=== PATIENT | male | born 1945 | race Caucasian/White ===

== ENCOUNTER 2020-05-13 15:19 | Emergency (ER) | payer MEDICARE, SELFPAY ==
[2020-05-13 15:26] VITALS: BP 126/59; PULSE 53; RESP 18; TEMP 36.7; O2SAT 98; BMI 27.1
[2020-05-13 15:32] VITALS: BP 126/59; PULSE 52; RESP 18; O2SAT 98
--- NOTE | 2020-05-13 15:43 | PC.NURSE ---
Patient brought in by EMS from home. Hx of Lewy body dementia and Parkinsons. Per patient has become increasingly combative, refusing food and medications today. Patient is able to tell me person, place, and time but takes a while to respond. Respirations regular and even. Skin PWD. Awaiting primary assessment.
--- NOTE | 2020-05-13 16:10 | PC.NURSE ---
Labs drawn by echocardiograph technician. Patient tolerated well. Patient changed out of soiled brief and wet pants. Urine collected using urinal. Awaiting results.
--- NOTE | 2020-05-13 16:15 | XR_ITS ---
EXAMINATION: XR CHEST CLINICAL INFORMATION: Altered mental status COMPARISON: 01/30/2016 TECHNIQUE: Frontal view of the chest was obtained. FINDINGS: No significant abnormality is noted involving the heart, lungs, mediastinum, bony thorax or soft tissues. A new tiny area of atelectasis is present at the right lung base. XR/XR chest 1V IMPRESSION: Unremarkable examination. Small area of right basilar atelectasis.
[2020-05-13 16:53] LABS: Basophils Absolute Auto 0.1 X10*3/uL (0.0-0.2); Basophils Percent Auto 0.5 % (0-2); Eosinophils Absolute Auto 0.1 X10*3/uL (0.0-0.4); Eosinophils Percent Auto 1.2 % (0-4); Hemoglobin 13.4 g/dl (14.0-18.0); Imm Gran Abs Auto 0.04 X10*3/uL (0.00-0.03); Imm Gran Pct Auto 0.4 % (0.0-0.4); Lymphocytes Absolute Auto 1.9 X10*3/uL (1.2-4.9); Lymphocytes Percent Auto 18.4 % (20-40); MANUAL DIFF FLAG NO; Mean Corpuscular HGB Conc 33.5 g/dl (31.0-36.0); Mean Corpuscular Hemoglobin 34.4 pg (27.0-33.0); Mean Corpuscular Volume 102.6 fL (80-98); Mean Platelet Volume 10.3 fL (9.4-12.4); Monocytes Absolute Auto 0.8 X10*3/uL (0.1-1.2); Monocytes Percent Auto 7.5 % (2-11); Neutrophils Absolute Auto 7.5 X10*3/uL (2.0-8.3); Platelet Count 176 X10*3/uL (160-400); Red Cell Distribution Width 12.7 % (11.0-16.0); White Blood Count 10.4 X10*3/uL (4.8-10.8)
[2020-05-13 17:00] LABS: Glucose Urine UA NEG (NEG); Leukocyte Esterase Urine NEG (NEG); Nitrite Urine NEG (NEG); Urine Blood NEG (NEG); Urine Ketones NEG (NEG); Urine Protein NEG (NEG-TRACE)
[2020-05-13 17:04] LABS: Appearance Urine HAZY; Color Urine YELLOW
[2020-05-13 17:35] LABS: Alanine Aminotransferase < 6 U/L (0-40); Albumin Level 4.2 g/dL (3.5-5.0); Alkaline Phosphatase 69 U/L (39-117); Anion Gap 13 (12-20); Aspartate Amino Transferase 11 U/L (5-37); Bilirubin Total 1.2 mg/dL (0.0-1.0); Blood Urea Nitrogen 26 mg/dL (9-16); Calcium 8.4 mg/dL (8.4-10.2); Carbon Dioxide 25 mmol/L (22-29); Chloride 104 mmol/L (96-108); Creatinine Clr Calc Pharmacy 68.9; Estimated Glomerular Filt Rate > 60; Glucose Random 98 mg/dL (60-115); Potassium 4.5 mmol/l (3.3-5.1); Sodium 137 mmol/L (135-145); Total Protein 6.4 g/dL (6.5-8.0)
--- NOTE | 2020-05-13 17:55 | ED_ITS ---
HPI - Altered Mental Status General Chief Complaint: Altered Mental Status Stated Complaint: AMS X'S 3 DAYS W/ VISUAL CHASE & IRRAT BEHAVIOR Time Seen by Provider: 05/13/20 16:15 Source: family Mode of arrival: wheelchair Limitations: altered mental status and other ( dementia) History of Present Illness HPI narrative: patient with Lewy body dementia per patient is paranoid for last 3 days difficult to control seen by nurse practitioner who increased the dose of Seroquel to 75 mg brought to the ER to rule out any metabolic reason for change in mental status. No cough no fever no vomiting Related Data Previous Rx's Medication Instructions Recorded lorazepam [Ativan] 0.5 mg PO BEDTIME PRN #10 tab 05/13/20 Allergies Allergy/AdvReac Type Severity Reaction Status Date / Time No Known Allergies Allergy Unverified 03/07/20 19:07 [No Known Allergies*] Review of Systems Review of Systems: Yes Unobtainable due to mental status PMFSH Past Medical History Medical History Lewy body dementia Parkinson disease Social History Social History Alcohol intake: never Smoking Status: Never smoker Use of substances other than those prescribed or required for medical reasons: No Advance Directives: No Advance Directives Information Provided: No Physical Exam Vital Signs: Vital Signs: Last Vital Signs Temp 98.0 F 05/13/20 15:26 Pulse 60 05/13/20 18:00 Resp 18 05/13/20 18:00 BP 126/59 L 05/13/20 15:32 Pulse Ox 97 05/13/20 18:00 Body Mass Index 27.1 Appearance: Alert. Oriented X2-3. No acute distress. Eyes: Pupils equal, round and reactive to light. ENT: Pharynx normal. Neck: Normal inspection. Neck supple. CVS: Normal heart rate and rhythm. Pulses normal. Respiratory: No respiratory distress. Breath sounds normal. Abdomen: Soft and nontender. Skin: Skin warm and dry. Normal skin color. Normal skin turgor. Extremities: No lower extremity edema. Good range of movement Neuro: Oriented X 2-3. No motor deficit. No sensory deficit. Course Course Course Narrative: patient with body dementia with psychotic behavior at home paranoid at this time patient behaving normal had food in the ER lab workup essentially negative. Case discussed with patient's agreed to take the boone marquez home for now continue Seroquel will add the lorazepam in the night for increased agitation MDM - Altered Mental Status Lab Data Result diagrams: 05/13/20 16:46 05/13/20 16:46 Labs: Lab Results 05/13/20 05/13/20 05/13/20 Range/Units 16:46 16:46 16:54 WBC 10.4 (4.8-10.8) X10*3/uL RBC 3.90 L (4.60-5.80) X10*6/uL Hgb 13.4 L (14.0-18.0) g/dl Hct 40.0 L (42-52) % MCV 102.6 H (80-98) fL MCH 34.4 H (27.0-33.0) pg MCHC 33.5 (31.0-36.0) g/dl RDW 12.7 (11.0-16.0) % Plt Count 176 (160-400) X10*3/uL MPV 10.3 (9.4-12.4) fL Immature Gran % (Auto) 0.4 (0.0-0.4) % Neut % (Auto) 72.0 (45-73) % Lymph % (Auto) 18.4 L (20-40) % Sumner % (Auto) 7.5 (2-11) % Eos % (Auto) 1.2 (0-4) % Baso % (Auto) 0.5 (0-2) % Lymph # (Auto) 1.9 (1.2-4.9) X10*3/uL Sumner # (Auto) 0.8 (0.1-1.2) X10*3/uL Eos # (Auto) 0.1 (0.0-0.4) X10*3/uL Baso # (Auto) 0.1 (0.0-0.2) X10*3/uL Abs Immat Gran (auto) 0.04 H (0.00-0.03) X10*3/uL Absolute Neuts (auto) 7.5 (2.0-8.3) X10*3/uL Absolute Nucleated RBC 0.000 (0.0-0.012) X10*3/uL Nucleated RBC % (auto) 0.0 (0.0-0.2) /100WBC Sodium 137 (135-145) mmol/L Potassium 4.5 (3.3-5.1) mmol/l Chloride 104 (96-108) mmol/L Carbon Dioxide 25 (22-29) mmol/L Anion Gap 13 (12-20) BUN 26 H (9-16) mg/dL Creatinine 1.00 (0.5-1.4) mg/dL Estim Creat Clear Calc 68.9 Estimated GFR > 60 Random Glucose 98 (60-115) mg/dL Calcium 8.4 (8.4-10.2) mg/dL Total Bilirubin 1.2 H (0.0-1.0) mg/dL AST 11 (5-37) U/L ALT < 6 (0-40) U/L Alkaline Phosphatase 69 (39-117) U/L Total Protein 6.4 L (6.5-8.0) g/dL Albumin 4.2 (3.5-5.0) g/dL Urine Color YELLOW Urine Appearance HAZY Urine pH 7.0 (5.0-8.0) Ur Specific [place] 1.010 (1.005-1.025) Urine Protein NEG (NEG-TRACE) MG/DL Urine Glucose (UA) NEG (NEG) MG/DL Urine Ketones NEG (NEG) MG/DL Urine Blood NEG (NEG) Urine Nitrite NEG (NEG) Ur Leukocyte Esterase NEG (NEG) Discharge Plan Discharge Clinical Impression: Dementia with Lewy bodies Qualifiers: Dementia behavioral disturbance: with behavioral disturbance Qualified Code(s): G31.83 - Dementia with Lewy bodies Patient Disposition: Home, Self-Care Instructions: Dementia (ED) Additional Instructions: continue your medications as prescribed by PCP. Ativan 0.5 mg every night as needed for increased agitation. Follow-up with your PCP Prescriptions: New lorazepam [Ativan] 0.5 mg tablet 0.5 mg PO BEDTIME PRN (Reason: agitation) Qty: 10 RF: 0
[2020-05-13 18:00] VITALS: PULSE 60; RESP 18; O2SAT 97
== END 2020-05-13 18:40 | disposition home or self-care (01) ==
PROVIDERS: Emergency Provider Internal Medicine
DX: G31.83 Neurocognitive disorder with Lewy bodies (principal); R41.82 Altered mental status, unspecified; Z79.899 Other long term (current) drug therapy
CPT/HCPCS: 36415; 71045; 80053; 81003; 85025; 99283; 99284

== ENCOUNTER 2020-05-14 09:54 | Emergency (ER) | payer MEDICARE, SELFPAY ==
[2020-05-14] VITALS (9 sets, daily range): BP systolic 110–205; BP diastolic 61–119; PULSE 60–85; RESP 16–20; TEMP 36.7–36.8; O2SAT 96–99; BMI 56.9
--- NOTE | 2020-05-14 10:29 | ED.AMS ---
HPI - Altered Mental Status General Chief Complaint: Altered Mental Status Stated Complaint: ukn Time Seen by Provider: 05/14/20 10:05 Source: patient, family and EMS Mode of arrival: EMS Limitations: altered mental status (dementia ) History of Present Illness HPI narrative: 74 y/o male with history of Lewy Body Dementia, Parkinson's disease who presents via EMS with aggressive and agitated behavior at home along with paranoia. He was seen in this ER yesterday for the same - had normal blood work and UA; he was discharged with PRN ativan but family was not able to fill it late night. He had continued agitated behavior overnight, hitting nielsen per family. He was given 2mg Versed by EMS with improvement. MD complaint: altered mental status (agitation ) Timing confirmed by: spouse Severity: severe Consistency of symptoms: waxing and waning Context: history of similar presentation Associated symptoms: denies other symptoms Treatments prior to arrival: other (Versed ) Related Data Home Medications Medication Instructions Recorded Confirmed Aspir-81 81 mg PO DAILY 05/14/20 05/14/20 atorvastatin 80 mg PO BEDTIME 05/14/20 05/14/20 wojqhnn-ukpefhbqs-mgfr 1 dose PO DAILY 05/14/20 05/14/20 carbidopa-levodopa 25 - 100 mg PO QID 05/14/20 05/14/20 cholecalciferol (vitamin D3) 25 mcg PO DAILY 05/14/20 05/14/20 finasteride 5 mg PO DAILY 05/14/20 05/14/20 melatonin 3 mg PO NEEDED PRN 05/14/20 05/14/20 memantine 10 mg PO BID 05/14/20 05/14/20 methenamine hippurate 1 g PO BID 05/14/20 05/14/20 metoprolol succinate 50 mg PO DAILY 05/14/20 05/14/20 pimavanserin 34 mg PO DAILY 05/14/20 05/14/20 quetiapine [Seroquel] 50 mg PO BEDTIME 05/14/20 05/14/20 tamsulosin [Flomax] 0.4 mg PO BEDTIME 05/14/20 05/14/20 trazodone 50 mg PO BEDTIME 05/14/20 05/14/20 Previous Rx's Medication Instructions Recorded lorazepam [Ativan] 0.5 mg PO BEDTIME PRN #14 tab 05/13/20 Allergies Allergy/AdvReac Type Severity Reaction Status Date / Time No Known Allergies Allergy Unverified 03/07/20 19:07 [No Known Allergies*] Review of Systems Review of Systems: Constitutional: No Fever, No Chills ENT/Mouth: No sore throat, No Rhinorrhea Cardiovascular: No Chest Pain, No SOB, No Orthopnea, No Edema Respiratory: No Cough, No Sputum, No Wheezing, No dyspnea Gastrointestinal: No Nausea, No Vomiting, No Diarrhea, No abdominal Pain Genitourinary: No Dysuria, No Urinary Frequency, No Hematuria Musculoskeletal: No joint pain, No Myalgias Skin: No Skin Lesions, No rash Neuro: No Weakness, No Numbness, No Dizziness, No Headache, +gait disturbanc Psych: + Anxiety/Panic, No Depression, No hallucinations Heme/Lymph: No Bruising, No Lymphadenopathy Endocrine: No Polyuria, No Polydipsia PMFSH Past Medical History Attestation statement: The following information was validated with the patient. Medical History Lewy body dementia Parkinson disease Social History Social History Alcohol intake: never Smoking Status: Never smoker Advance Directives: No Advance Directives Information Provided: Yes Physical Exam Vital Signs: Vital Signs: Last Vital Signs Temp 98.1 F 05/14/20 16:56 Pulse 60 05/14/20 16:56 Resp 18 05/14/20 16:56 BP 201/108 H 05/14/20 16:56 Pulse Ox 97 05/14/20 16:56 Body Mass Index 56.9 Appearance: Alert. Oriented X2. No acute distress. Eyes: Pupils equal, round and reactive to light. ENT: Pharynx normal. Neck: Normal inspection. Neck supple. CVS: Normal heart rate and rhythm. Pulses normal. Respiratory: No respiratory distress. Breath sounds normal. Abdomen: Soft, obese and nontender. +BS x4 Skin: Skin warm and dry. Normal skin color. Normal skin turgor. No rashes. Extremities: No lower extremity edema. Neuro: Oriented to person, place, month and year. Paranoid thoughts, loose associations. Course Course Course Narrative: 74 y/o male presenting back with continued aggressive behavior and agitation at home. Metabolic workup unremarkable yesterday. Will repeat UA and discuss case with case management. Reevaluation(s) Reevaluation #1: Case management had lengthy discussion with patient's who is a retired nurse. She understands her husbands decline and overall prognosis. She is interested in palliative care or hospice at home. Reevaluation #2: Family willing to pay for respite placement until he can be enrolled into Palliative care this weekend. Will keep in the ER overnight so a safe d/c plan can be established in the morning. PRN ativan ordered for agitation. MDM - Altered Mental Status Differential Diagnosis Differential diagnosis: Likely delirium, dementia, encephalopathy and hypoglycemia Medical Records Attestation: I reviewed the patient's medical records. Critical Care Time Critical Care Time Critical Care Time: No Discharge Plan Discharge Clinical Impression: Dementia Prescriptions: No Action lorazepam [Ativan] 0.5 mg tablet 0.5 mg PO BEDTIME PRN (Reason: agitation) Qty: 14 RF: 0 Aspir-81 81 mg PO DAILY RF: 0 trazodone 50 mg Tablet 50 mg PO BEDTIME RF: 0 metoprolol succinate 50 mg Tablet Extended Release 24 Hr 50 mg PO DAILY RF: 0 methenamine hippurate 1 gram Tablet 1 g PO BID RF: 0 tamsulosin [Flomax] 0.4 mg Capsule 0.4 mg PO BEDTIME RF: 0 finasteride 5 mg Tablet 5 mg PO DAILY RF: 0 memantine 10 mg Tablet 10 mg PO BID RF: 0 quetiapine [Seroquel] 50 mg Tablet 50 mg PO BEDTIME RF: 0 cholecalciferol (vitamin D3) 25 mcg (1,000 unit) Tablet 25 mcg PO DAILY RF: 0 pimavanserin 34 mg Capsule 34 mg PO DAILY RF: 0 melatonin 3 mg Capsule 3 mg PO NEEDED PRN (Reason: Sleep) RF: 0 atorvastatin 80 mg PO BEDTIME RF: 0 tuvvrbf-nysaxcyax-faty 1 dose PO DAILY RF: 0 carbidopa-levodopa 25 - 100 mg PO QID RF: 0
--- NOTE | 2020-05-14 15:05 | MHC.CM.PN ---
Received case management consult from Kenna GREGORY. Patient was in ER yesterday and discharged home and returned due to AMS. Met with charu's , Cordelia. Patient lives with , uses a cane/walker/wheelchair for mobility and [facility]. PCP verified as Dr Nicholas Garcia. Neurologist is Dr. Núñez at [facility]. is having a difficult time caring for patient due to worsening symptoms. Palliative care, memory care at assisted living and respite at a [facility] facility is being searched. Cordelia is hoping to have patient return home with [facility] palliative care. However, she is concerned patient received Versed by EMS. Anticipate patient will stay overnight in order to arrange Palliative care at home. Kenna GREGORY aware. Continue to monitor for d/c needs
--- NOTE | 2020-05-14 16:06 | MHC.CM.ED ---
Patient's Ashley and daughter Jeanine came to see patient. Patient experiencing own symptoms. They are afraid they will not be able to care for patient at home. They are requesting referrals be broadcasted to facilities in the area with memory care units for private pay. Referrals made via [employer]. Jeanine is requesting Psych consult for medication assessment. Kenna GREGORY aware and will order. Corie SANTOS will not be able to sign patient on their service until Wednesday or Wednesday. Ashley and Jeanine aware. Anticipate patient will remain in ER overnight. Continue to monitor for d/c needs.
[2020-05-14] MEDS: Carbidopa/Levodopa 25/100 TABLET 1 TAB PO (16:55)
--- NOTE | 2020-05-14 17:32 | PC.NURSE ---
pT INCREASINGLY AGGITATED AND CONFUSED. THIS RN ATTEMPTING TO ADMINISTER 1.5 TABS SINNAMET WITHOUT SUCCESS. This rn called and daughter to help assistant wrestling coach pt over the phone without success. , Cordelia will come to ED to help administer meds including all 9pm medications. Kenna GREGORY is aware of rising BP and aggitation. Sitter remains at bedside with hands on patient at times to help calm him. This far he has not attempted to leave the bed and is redirectable for short periods. Pato RN also aware of plan.
[2020-05-14 17:46] LABS: Glucose Urine UA NEG (NEG); Leukocyte Esterase Urine NEG (NEG); Nitrite Urine NEG (NEG); PH 6.5 (5.0-8.0); Urine Blood TRACE (NEG); Urine Ketones NEG (NEG); Urine Protein TRACE MG/DL (NEG-TRACE)
[2020-05-14] MEDS: LORazepam 2 MG/ML VIAL IM (17:50)
[2020-05-14 17:54] LABS: Appearance Urine CLEAR; Color Urine YELLOW
[2020-05-14 18:01] LABS: Bacteria Urine 1+ /LPF; Squamous Epithelial Cell Urine 1+ /LPF
--- NOTE | 2020-05-14 18:16 | PC.NURSE ---
Late entry 1750 Pt medicated with ativan im after tried and failed to have him take po routine meds.
[2020-05-14] MEDS: Carbidopa/Levodopa CR 25/100 TABLET.ER 1 TAB PO ×2 (18:38→19:07)
[2020-05-14] MEDS: Tamsulosin HCL 0.4 MG CAPSULE 0.8 MG PO (18:38)
[2020-05-14] MEDS: Memantine HCl 10 MG TABLET PO (18:39)
[2020-05-14] MEDS: traZODone HCL 50 MG TABLET PO (18:39)
--- NOTE | 2020-05-14 18:40 | PC.NURSE ---
pt at bedside to assist pt in taking at-home meds. orders have been correlated to fit pt at home meds, but pt has not taken any meds today and would like pt to have meds to assist in pt getting rest this evening. pt given 2100 proscar, flomax, trazadone, memantine and carbadopa levadopa.
[2020-05-14] MEDS: Finasteride 5 MG TABLET PO (19:07)
[2020-05-14] MEDS: Melatonin 3 MG TABLET PO (23:25)
[2020-05-14] MEDS: LORazepam 0.5 MG TABLET PO (23:25)
--- NOTE | 2020-05-14 23:27 | PC.NURSE ---
Previous nurse noted conversation w/pts , and prifreddyder re:difficulty w/medicating pt. Pt was medicated w/night meds prior to 7pm. provider & pts discussed this. Pt was just medicated w/prn meds needing much encouragement.
[2020-05-15] VITALS (13 sets, daily range): BP systolic 115–189; BP diastolic 80–112; PULSE 57–70; RESP 15–20; TEMP 35.5–37.1; O2SAT 94–99
--- NOTE | 2020-05-15 02:24 | PC.NURSE ---
PT CONTINUES TO WAIT FOR [facility], CONFUSION OVER WRONG ASSESSMENT BEING PUT IN PTS CHART. PREVIOUS RN REPORTED PT WAS ALREADY SEEN AND BEDSEARCH. PT WAS NOT SEEN. [facility] 1ST ARRIVAL TIME WAS 2230, THEY DID NOT ARRIVE. 2ND TIME WAS 0000, 0030, FINALLY ONSITE @0130, BUT CONFUSION CONTINUED WHETHER PT NEEDED TO BE SEEN SO SUPERINTENDENT OVERHEAD DISTRIBUTION SAW ANOTHER PATIENT FIRST. PT CONTINUES TO WAIT TO BE SEEN. PT REMAINS A/O X 3 SPEAKS IN FULL CLEAR SENTENCES, PT HAS REMAINED IN BEHAVIORAL CONTROL THROUGHOUT THE NIGHT
[2020-05-15] MEDS: Carbidopa/Levodopa 25/100 TABLET 1.5 TAB PO ×2 (08:54→15:32)
[2020-05-15] MEDS: Aspirin 81 MG TAB.CHEW PO (08:56)
[2020-05-15] MEDS: Metoprolol Succinate ER 50 MG TAB.ER.24H PO (08:56)
[2020-05-15] MEDS: Cholecalciferol (Vitamin D3) 25 MCG TABLET PO (08:56)
--- NOTE | 2020-05-15 08:58 | PC.NURSE ---
pt's is at bedside,
[2020-05-15] MEDS: Finasteride 5 MG TABLET PO (09:15)
--- NOTE | 2020-05-15 09:15 | PC.NURSE ---
PT HAD PERSONAL/GABBY CARE. LARGE AMT OF URINE NOTED. LARGE PURPLE BRUISING NOTED TO L HIP. PT STAND AND PIVOTED TO RECLINER CHAIR. AT BEDSIDE.
--- NOTE | 2020-05-15 09:16 | PC.NURSE ---
[facility] (edilberto) aware about l hip bruising/discoloration.
--- NOTE | 2020-05-15 09:29 | CT_ITS ---
EXAMINATION: CT HEAD WITHOUT CONTRAST CLINICAL INFORMATION: Sudden increaseD agitation and aggression. History of dementia COMPARISON: None TECHNIQUE: Contiguous axial imaging was performed from the skull base to vertex without intravenous administration of contrast. This CT examination was performed using dose optimization techniques as appropriate, variously including the following: *Automated exposure control *Adjustment of mA and/or kV according to patient size (this includes techniques or standardized protocols for targeted exams where dose is matched to indication/reason for exam; i.e. extremities or head) *Use of iterative reconstruction technique DLP: 1928 mGy-cm FINDINGS: There is no evidence of acute intracranial hemorrhage or territorial infarction. No abnormal mass effect or midline shift is seen. Toth to white matter differentiation is well preserved. No extra-axial fluid collections are identified. The lateral ventricles are symmetrical in size but enlarged. The osseous structures and soft tissues are normal. The mastoid air cells and visualized portions of the paranasal sinuses are well aerated. CT/CT head/brain wo con IMPRESSION: 1. No acute intracranial process seen. 2. Age-related cerebral atrophy.
--- NOTE | 2020-05-15 09:52 | XR_ITS ---
EXAMINATION: XR HIP, LEFT CLINICAL INFORMATION: Left hip pain. COMPARISON: None TECHNIQUE: Two views of the left hip. FINDINGS: There is no visible acute fracture, dislocation or subluxation. No bony erosive changes seen. The soft tissues are normal. XR/XR hip LT w PEL1V IMPRESSION: Unremarkable left hip exam.
--- NOTE | 2020-05-15 10:45 | MHC.CM.ED ---
Addendum entered by Ailyn Lawrence 05/15/20 11:03: Patient's , Ashley, told T/W on 05/14 patient has been experiencing hallucinations and paranoia for about a month. The episodes have gotten worse and more frequent. Ashley told COLT Garg that these are new symptoms. Documentation from patient's neuro televisit on 02/05/2020 has daily hallucinations documented. Original Note: Patient remains in ER. Per COLT Garg, patient's Cordelia doesn't feel symptoms are related to his dementia or Parkinson's. Britany has ordered a Head CT, Hip Xray and Psych consult. Patient's daughter, Leidy has expressed concern to T/W that patient is in the ER and not admitted. Ann-Marie Mata and Caitlin Vieyra aware. Continue to monitor for d/c needs.
--- NOTE | 2020-05-15 10:54 | PC.NURSE ---
pt is slightly agitated and is hitting out at staff and screaming out. pt is being med with home med nuplazid 34mg which is non-formulary at [facility] by his (vicki) which was approved by [facility] (edilberto). pt to have ct scan and xray of l hip.
[2020-05-15] MEDS: LORazepam 0.5 MG TABLET PO ×2 (11:29→23:36)
[2020-05-15] MEDS: QUEtiapine Fumarate 50 MG TABLET PO ×2 (11:29→23:29)
--- NOTE | 2020-05-15 11:38 | PC.NURSE ---
medicated per emar with prns. pa aware.
--- NOTE | 2020-05-15 11:56 | MHC.CM.ED ---
Received telephone call from patient's Cordelia. Cordelia stated she wants patient to go to [facility]. T/W explained, psych consult was ordered and the provider who completes the psych consult will have to determine if [facility] is appropriate. Also explained her contact information will be provided. Also explained if pam psych was found to be appropriate, patient could potentially stay in the ER as long as 10 days until a bed could be found. Cordelia verbalized understanding. Continue to monitor for d/c meeds.
--- NOTE | 2020-05-15 12:00 | PC.NURSE ---
pt has received these meds this am. sinemet 25/100mg 1.5tabs po, metoprolol succ er 50mg, aspirin 81mg, namenda 10mg, vit d3, finasteride 5mg, nuplazid 34mg, seroquel 50mg and ativan 0.5mg
--- NOTE | 2020-05-15 12:50 | PC.NURSE ---
pt transferred w multiple staff assist to hospital bed from stretcher following xray. pt mildly combative during transfer but redirectable. pt cleaned of soiled linens upon return to room, given bed bath w warm sani wipes. placed w pillow under bruised l hip. 1:1 sitter maintained for safety.
--- NOTE | 2020-05-15 14:14 | PC.NURSE ---
pt ate 75% of lunch.
--- NOTE | 2020-05-15 14:29 | PC.NURSE ---
pt's requested inpatient pam-psych placement. this rn spoke with ki (care team). care team is aware.
--- NOTE | 2020-05-15 16:32 | MHC.CM.ED ---
Received notification from [facility] team that family is no longer interested in [facility]. Their ulitmate goal is to have patient go to a facility for respite, while they can arrange palliative care or hospice at home. Spoke with patient's /HCP, Cordelia via telephone at [phone]. She already spoke with [facility]. They suggested patient go to reespite prior to coming home. Cordelia is agreeable to this. Facilities still following patient were discussed. [facility] is Cordelia's first choice. She understands patient has to be sitter free for 24 hours, receive no IM medications for 24 hours, a copy of patients HCP will need to be provided to the ER and $4900 will need to be provided to the facility. Cordelia aware patient will remain in ER overnight. Britany GREGORY and Alysia RN aware. Continue to monitor for d/c needs.
--- NOTE | 2020-05-15 16:42 | MHC.CARE ---
CARE team consult ordered for 74 year old male boarding in the ED awaiting CM placement after family expressed interest and intention for pt to be admitted to a pam-psych facility. This curriculum writer spoke with ED provider and manager case re: the pt's presentation, symptom hx, and interactions with the family throughout pt's stay in the ED. Neuro psych eval was reviewed and notable details highlighted to discuss with pt's and daughter. This curriculum writer met with pt's and daughter in private area of ED to identify what their main concerns and questions are re: pt's care, safety, and viable treatment options. The process of evaluation, placement, and treatment for psychiatric care was explained, and option of discharging pt from [facility] ED to [place] [facility] for evaluation and possible placement on pam-psych unit there, if pt is found to be appropriate for psychiatric inpt LOC. The characteristics/symptoms and progression of Lewy Body Dementia was discussed, and this curriculum writer shared that a psychiatric placement is not likely to help with symptom management as they're hoping it would, and that pt may await placement in the ED longer than if he was to await placement at a LTC or STR facility. Pt's and daughter discussed the initial goal of palliative care and hospice, and that the agitation and aggressive behavior raised concern for the safety of both the pt and his . It was agreed that due to the safety concerns, that the option of pt returning home to await initiation of palliative care is not ideal. Pt's reported that she is hoping that he is able to return home as soon as possible, and at this time is hoping that he is able to be placed in a facility for short term respite until hospice is able to initiate services in the home, which was estimated to be in two weeks or so. Psych consult was placed this morning and confirmed this afternoon. Pt will likely be seen by a psych provider tomorrow 05/16/20 or Wednesday05/17/20. Pt's and daughter were informed that this consultation will not provide a detention fix or solution to the progression of pt's disease, however can make recommendations for how to better manage symptoms of agitation and aggression until long care term is established. Information was relayed to manager case and ED provider.
[2020-05-15] MEDS: Memantine HCl 10 MG TABLET PO (21:15)
[2020-05-15] MEDS: Carbidopa/Levodopa CR 25/100 TABLET.ER 2 TAB PO (23:28)
[2020-05-15] MEDS: Atorvastatin Calcium 80 MG TABLET PO (23:30)
[2020-05-15] MEDS: QUEtiapine Fumarate 50 MG TABLET 25 MG PO (23:31)
[2020-05-15] MEDS: traZODone HCL 50 MG TABLET PO (23:32)
[2020-05-15] MEDS: Tamsulosin HCL 0.4 MG CAPSULE PO (23:33)
[2020-05-16] VITALS (9 sets, daily range): BP systolic 106–209; BP diastolic 62–118; PULSE 52–72; RESP 14–18; TEMP 36.5; O2SAT 97–100
--- NOTE | 2020-05-16 07:32 | PC.NURSE ---
pt continues to sleep at this time. resp even and unlabored. diet tray arrived.
[2020-05-16] MEDS: Aspirin 81 MG TAB.CHEW PO (08:28)
[2020-05-16] MEDS: Memantine HCl 10 MG TABLET PO (08:28)
[2020-05-16] MEDS: Carbidopa/Levodopa 25/100 TABLET 1.5 TAB PO ×2 (08:28→15:41)
[2020-05-16] MEDS: Metoprolol Succinate ER 50 MG TAB.ER.24H PO (08:28)
[2020-05-16] MEDS: Cholecalciferol (Vitamin D3) 25 MCG TABLET PO (08:28)
[2020-05-16] MEDS: Finasteride 5 MG TABLET PO (08:30)
[2020-05-16] MEDS: QUEtiapine Fumarate 50 MG TABLET 25 MG PO (08:32)
--- NOTE | 2020-05-16 08:42 | PC.NURSE ---
pt refused breakfast. given all am meds in icecream. pt tolerated well. pt changed and given bath in bed. linen changed. pt repositioned. tolerated well. pt is pleasant engaging in conversation.
--- NOTE | 2020-05-16 11:24 | MHC.CM.ED ---
Addendum entered by Maria Dolores Michael 05/16/20 13:55: SNF re-broadcast update: [facility] is the only facility that has responded with a potential for admission: they will need to contact administration on 05/17 for financial agreement. Other sites declining d/t being at capacity, not taking admissions d/t COVID or no bed available. This information was relayed to Cordelia who is visting pt in the ED: She is becoming increasingly frustrated with what she is calling a lack of care or plan for discharge. Reiterated barriers to placing pt including holiday, pandemic status and needing to be free from a sitter and IM meds x 24 hours. Discussed alternative care plan including 11/01 care at home: Cordelia states staff is not safe from pt should he have a behavioral outburst and cannot consider this as an option. Discussed case with ED RN and PA: 05/15 ordered psych eval is active - will not occur today d/t major holiday: reviewed notes from CARE team consult re: futility of pam psych placement: reviewed findings from SNF search - [facility] has accepted pt, spoken with Cordelia re: financial arrangements but cannot accept pt until tomorrow. At this time, pt will continue to hold in the ED until transfer arrangements can be made for 05/17 to [facility] for private pay respite care. Addendum entered by Maria Dolores Michael 05/16/20 11:58: Review of EMR does not support medical need for admission: pt is presently at CT scan for an abd series: spouse is concerned pt may be constipated. Medical necessity for admission was explained to Cordelia - she is not in agreement with criteria. Explained barriers to placement today including: major holiday/limited admissions staff, pandemic- with many facilities closed to admissions or at capacity. Cordelia verbalized frustration with pt holding in ED until placement can be secured. Offered re broadcast SNF referrals for a transfer today: Cordelia is in agreement with plan and verbalized understanding of potential barriers. ED RN and MD aware an in agreement with plan. Private pay STR/respite referrals rebroadcasted. Original Note: Attempted to contact [facility] via [employer] x 2 without success. Call placed to facility to inquire on transfer status of pt. [facility] and all admissions staff, are off for the holiday but will return tomorrow. The spa receptionist suggest I contact [facility] tomorrow. Call placed to pt's spouse Cordelia: message left requesting a callback to update her on above. Will await her callback - ? if she would like to wait until tomorrow for [facility] or if she'd like to pursue other facilities: The holiday may be a barrier to placement today, however. Pt's spouse arrived at ED to visit with pt: She was quite upset with pt not being able to transfer to [facility] today and asked that pt be placed at a high quality facility today or admitted to the floors where he can have specialists and more medical oversight ED care team update
--- NOTE | 2020-05-16 11:30 | CT_ITS ---
EXAMINATION: CT ABDOMEN AND PELVIS WITHOUT CONTRAST CLINICAL INFORMATION: Lack of bowel movement for several days. COMPARISON: 01/30/2016 TECHNIQUE: Multidetector volumetric imaging was performed from the superior aspect of the liver through the pubic symphysis. Sagittal and coronal reformatted images were obtained on the technologist's workstation. This CT examination was performed using dose optimization techniques as appropriate, variously including the following: *Automated exposure control *Adjustment of mA and/or kV according to patient size (this includes techniques or standardized protocols for targeted exams where dose is matched to indication/reason for exam; i.e. extremities or head) *Use of iterative reconstruction technique DLP: 886 mGy-cm FINDINGS: LUNG BASES: Mild atelectasis in the dependent aspect of the left lower lobe. No pulmonary consolidation or pleural effusion at either lung base. Atherosclerotic calcification of coronary arteries and of the visualized descending thoracic aorta. LIVER: The liver has normal size, shape, and attenuation. No focal liver lesion. GALLBLADDER AND BILIARY TREE: No radiopaque gallstones, wall thickening or pericholecystic fluid. No intrahepatic or extrahepatic bile duct dilatation. PANCREAS: Normal. No evidence of pancreatic ductal dilatation or mass. SPLEEN: Normal. ADRENAL GLANDS: Normal. KIDNEYS AND URETERS: The kidneys have normal size. No hydroureteronephrosis, urolithiasis or perinephric fluid collection. No evidence of renal mass. BOWEL AND PERITONEUM: No dilated bowel loops. No focal bowel wall thickening, mesenteric fat stranding or ascites. Appendix is normal. Moderate amount of fecal material is present in the nondilated colon, and there is prominent fecal material within the lumen of the rectum, which is distended up to 8 cm diameter. No rectal wall thickening/inflammation. Diverticulosis of the descending and sigmoid colon without evidence of diverticulitis. ABDOMINAL WALL: Compared to 01/30/2016, no interval change in bilateral inguinal hernias. The left inguinal hernia contains fat. The right inguinal hernia contains fat and trace amount of fluid, as noted on 01/30/2016. VASCULATURE: Atherosclerotic calcification of the abdominal aorta without aneurysm. LYMPH NODES: No pathologic sized lymph nodes in the abdomen or pelvis. No inguinal lymphadenopathy. BLADDER AND PELVIC VISCERA: Urinary bladder has normal wall thickness. No bladder calculi. Prostate gland is unremarkable. No pelvic free fluid. 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 Chronic multilevel discovertebral degenerative change. Mild degenerative retrolisthesis at L2-L3, and mild grade 1 anterolisthesis at L5-S1. No aggressive osseous lesions. CT/CT abdomen pelvis wo con IMPRESSION: * No acute imaging abnormalities in the abdomen or pelvis compared to 01/30/2016. * Findings suggestive of constipation. The rectum is distended with fecal material. No evidence of inflammation or obstruction along the gastrointestinal tract. * Diverticulosis of the descending and sigmoid colon without diverticulitis. * Bilateral inguinal hernias are unchanged in appearance compared to 01/30/2016.
--- NOTE | 2020-05-16 11:30 | PC.NURSE ---
family at bedside and being rude and demanding to this rn. provider to bedside and she continued conversation in the same tone. demanding case management to speak with her face to face. tejinder contacted via [employer].
[2020-05-16] MEDS: Carbidopa/Levodopa 25/100 TABLET 2 TAB PO (12:16)
--- NOTE | 2020-05-16 13:25 | PC.NURSE ---
called to kitchen for lunch tray
--- NOTE | 2020-05-16 13:45 | PC.NURSE ---
pt eating lunch at this time. awaiting finish to give enema.
[2020-05-16] MEDS: Sodium Phosphate,Mono-Dibasic 133 ML ENEMA PR (14:27)
--- NOTE | 2020-05-16 14:45 | PC.NURSE ---
pt had bm s/p enema. cleaned up and repositioned.
--- NOTE | 2020-05-16 15:23 | PC.NURSE ---
psych md dimas to bedside with pt. this rn and pa speaking with md about plan of care. md agreeable to current plan of care and medications being given at this time. does not feel the need for any change. feels plan is appropriate.
[2020-05-16] MEDS: LORazepam 0.5 MG TABLET PO ×2 (15:40→20:26)
--- NOTE | 2020-05-16 15:53 | PC.NURSE ---
dinner order placed. pt medicated per emar prior. pt resting in bed calm and cooperative.
--- NOTE | 2020-05-16 19:08 | PC.NURSE ---
Leidy, daughter, present in [place], bringing icecream and pt's non formulary medication. Marilou, ED director stating that patient likely has placement tomorrow and that family is ok to come for med passes ifneeded. Leidy aware that patient is doing well at this time and will not visit inorder to not disrupt pt. Med and ice cream given to Serena BECKETT.
--- NOTE | 2020-05-16 19:15 | PC.NURSE ---
ASSUMED CARE OF PT. PT RESTING IN STRETCHER CALM. PT WATCHING HOCKEY LAYING IN HOSPITAL BED. DAUGHTER BROUGHT PT VINNY ICE CREAM. PT MEDICATED WITH ICE CREAM WITHOUT DIFFICULTY.
[2020-05-16] MEDS: traZODone HCL 50 MG TABLET PO (20:25)
[2020-05-16] MEDS: Tamsulosin HCL 0.4 MG CAPSULE PO (20:27)
[2020-05-16] MEDS: Atorvastatin Calcium 80 MG TABLET PO (20:27)
--- NOTE | 2020-05-16 20:46 | PC.NURSE ---
PT RESTING IN STRETCHER, VS OBTAINED. PT RESTING QUIETLY.
[2020-05-16] MEDS: cloNIDine HCL 0.2 MG TABLET PO (21:27)
--- NOTE | 2020-05-16 21:30 | PC.NURSE ---
PA AWARE OF PT'S B/P. PT MEDICATED PER EMAR. B/P 209/106 IN RIGHT ARM. 208/115 IN LEFT ARM. B/P TAKEN MULTIPLE TIME. PA AWARE.
--- NOTE | 2020-05-16 22:13 | PC.NURSE ---
PT RESTING IN STRETCHER. PT CLEANED UP AND WARM BLANKET APPLIED. PT APPEARS COMFORTABLE.
[2020-05-17] VITALS: BP 119/57; PULSE 57; RESP 16; O2SAT 97
--- NOTE | 2020-05-17 00:35 | PC.NURSE ---
PT RESTING IN HOSPITAL BED IN [facility] AT THIS TIME. WILL CONTINUE TO MONITOR PT.
--- NOTE | 2020-05-17 00:59 | PC.NURSE ---
PT SLEEPING, WAKES TO VOICE. PT IN NAD. WILL CONTINUE TO MONITOR PT. PT AWAITING BED SEARCH IN AM.
[2020-05-17 02:00] VITALS: BP 157/64; PULSE 53; RESP 16
--- NOTE | 2020-05-17 02:45 | PC.NURSE ---
PT SLEEPING IN HOSPITAL BED. PT WAKES TO VERBAL STIMULI, RESPIRATIONS EASY, N/L. SKIN W/D/P. VS OBTAINED. PT AWAITING FOR BED ASSIGNMENT AT THE [facility] THIS AM.
[2020-05-17 04:00] VITALS: BP 125/59; PULSE 76; RESP 16; O2SAT 96
--- NOTE | 2020-05-17 05:45 | PC.NURSE ---
PT IN NAD AT THIS TIME. PT SLEEPING AND WAKES TO VOICE AND IN NAD. AWAITING BED PLACEMENT FOR THIS AM.
[2020-05-17 06:00] VITALS: BP 130/57; PULSE 60; RESP 16; O2SAT 96
--- NOTE | 2020-05-17 06:24 | PC.NURSE ---
PT CLEANED UP AND CLEAN LINENS AND WARM BLANKET TO PT. VS OBTAINED. PT IS NONVERBAL AT THIS TIME AND NOT ANSWERING QUESTIONS. PT AWAITING BED PLACEMENT AT [facility].
--- NOTE | 2020-05-17 07:08 | PC.NURSE ---
REPORT TAKEN FROM MICHAELLE BECKETT. PT SLEEPING AT TIME OF REPORT. INFORMED PLAN IS FOR PT TO GO TO SNF TODAY.
[2020-05-17] MEDS: Aspirin 81 MG TAB.CHEW PO (09:15)
[2020-05-17] MEDS: Carbidopa/Levodopa 25/100 TABLET 1.5 TAB PO ×2 (09:16→16:30)
[2020-05-17] MEDS: Memantine HCl 10 MG TABLET PO (09:17)
[2020-05-17] MEDS: Cholecalciferol (Vitamin D3) 25 MCG TABLET PO (09:17)
[2020-05-17] MEDS: LORazepam 0.5 MG TABLET PO ×2 (09:19→16:30)
[2020-05-17] MEDS: Metoprolol Succinate ER 50 MG TAB.ER.24H PO (09:20)
[2020-05-17] MEDS: QUEtiapine Fumarate 50 MG TABLET 25 MG PO (09:20)
--- NOTE | 2020-05-17 09:21 | MHC.CM.ED ---
Received telephone call from Cheri at [facility] assisted living. They have a memory unit that is able to provide complete care for dementia patients. Cheri has been in discussion with Cordelia about a possible admission there. Chantelle, geriatric nursing assistant of the [facility] will be on site around 1pm. T/W explained she would need to have her temperature taken and answer the necessary questionaire. Cheri verbalizes understanding. Clinical information faxed to Cheri as requested. Continue to monitor for d/c needs.
--- NOTE | 2020-05-17 10:07 | MHC.CM.PN ---
Received telephone call from patient's , Cordelia. Explained [facility] would be here around 1pm to evaluate patient for their memory care unit. Also requested Cordelia provide a copy of HCP. Cordelia states she will bring it and will be heading to the hospital soon. Continue to monitor for d/c needs.
[2020-05-17] MEDS: Finasteride 5 MG TABLET PO (11:27)
[2020-05-17 12:20] LABS: COVID-19 Test Negative (Negative)
[2020-05-17] MEDS: Carbidopa/Levodopa 25/100 TABLET 2 TAB PO ×2 (12:42→12:49)
--- NOTE | 2020-05-17 16:30 | MHC.CM.ED ---
Spoke with Cheri at the [facility]. They don't have an apartment to offer the patient at this time. [facility] is able to offer a bed today under Medicare. Spoke with patient's , Cordelia via telephone. Cordelia agreeable to patient leaving ER at 5pm for [facility] via [facility]. Med nec with chart. Britany GREGORY and Laura BECKETT aware. Continue to monitor for d/c needs.
== END 2020-05-17 17:39 ==
PROVIDERS: Physician Assistant; Physician Assistant Medical; Emergency Provider Emergency Medicine Emergency Medical Services
DX: F03.90 Unspecified dementia, unspecified severity, without behavioral disturbance, psychotic disturbance, mood disturbance, and anxiety (principal); F05 Delirium due to known physiological condition; M25.552 Pain in left hip; M25.551 Pain in right hip; R10.9 Unspecified abdominal pain; G44.309 Post-traumatic headache, unspecified, not intractable; Z20.828 Contact with and (suspected) exposure to other viral communicable diseases; Z79.899 Other long term (current) drug therapy
CPT/HCPCS: 70450; 73502; 74176; 81001; 87635; 97162; 99284; 99285; J2060

== ENCOUNTER 2020-06-05 12:38 | Outpatient (REF) | payer MEDICARE, SELFPAY | END 2020-06-05 12:39 | disposition home or self-care (01) | LOC: HO.HVNA 12:38 | PROVIDERS: Visit Provider Internal Medicine Hematology & Oncology | DX: Z20.828 Contact with and (suspected) exposure to other viral communicable diseases (principal) | CPT/HCPCS: U0003 ==

== ENCOUNTER 2020-06-12 14:13 | Outpatient (REF) | payer MEDICARE, SELFPAY | END 2020-06-12 14:14 | disposition home or self-care (01) | LOC: HO.HVNA 14:13 | PROVIDERS: Visit Provider Internal Medicine Hematology & Oncology | DX: Z20.828 Contact with and (suspected) exposure to other viral communicable diseases (principal) | CPT/HCPCS: U0003 ==

== ENCOUNTER 2020-06-21 14:46 | Outpatient (REF) | payer MEDICARE, SELFPAY ==
[2020-06-21 14:54] LABS: COVID-19 Test Negative (Negative)
== END 2020-06-21 14:47 | disposition home or self-care (01) ==
LOC: HO.LNP 14:46
PROVIDERS: Visit Provider Internal Medicine
DX: Z20.822 Contact with and (suspected) exposure to COVID-19 (principal)
CPT/HCPCS: 87635